=== PATIENT | male | born 1985 | race African-American/Black ===

== ENCOUNTER 2018-09-29 18:51 | Emergency (ER) | payer OTHER ==
[~2018-09-29] VITALS: Ht 188 cm; Wt 82.0 kg
[2018-09-29 18:53] VITALS: BP 144/90
[2018-09-29] MEDS ORDERED: ALBU18HF2 IH (18:56)
== END 2018-09-30 01:06 | disposition left against medical advice (07) ==
LOC: ER 18:51
DX: Z53.21 Procedure and treatment not carried out due to patient leaving prior to being seen by health care provider (principal)
CPT/HCPCS: 93005